=== PATIENT | male | born 1955 | race Two or more races ===

== ENCOUNTER 2018-03-22 09:48 | Inpatient (IN) | payer BC ==
[~2018-03-22] VITALS: Ht 172.7 cm; Wt 81.6 kg
[2018-03-22 12:19] LABS: BASOPHIL (%) 0.3 % (0-1); EOSINOPHIL (%) 0.3 % (0-5); HEMATOCRIT 29.5 % (38.0-50.0); IMMATURE GRANULOCYTE (%) 0.3 % (0.0-0.7); LYMPHOCYTE COUNT 0.7 K/uL (1.0-2.8); MCH 30.1 PG (29.0-34.0); MCHC 33.9 G/DL (30.0-36.0); MCV 88.9 FL (86-99); MONOCYTE (%) 5.7 % (3-12); MONOCYTE COUNT 0.7 K/uL (0-0.8); NEUTROPHIL (%) 87.4 % (45-76); NEUTROPHIL COUNT 10.7 K/uL (1.8-6.4); PLATELET COUNT 272 K/uL (156-360); RBC DIS.WIDTH-CV 13.6 % (11.8-14.6); RBC DIS.WIDTH-SD 44.8 % (39-53); RED BLOOD COUNT 3.32 M/uL (4.00-5.50); WHITE BLOOD COUNT 12.2 K/uL (4.1-10.2)
[2018-03-22 12:30] LABS: ALBUMIN 3.6 g/dL (3.2-4.8)
[2018-03-22 12:31] LABS: CHLORIDE 99 mEq/L (99-109); POTASSIUM 3.1 mEq/L (3.7-5.4); SODIUM 141 mEq/L (136-147)
[2018-03-22 12:33] LABS: GLUCOSE 109 mg/dL (70-99); TOTAL PROTEIN 7.3 g/dL (6.4-8.3)
[2018-03-22 12:35] LABS: INTER. NORMALIZED RATIO 1.5; TOTAL BILIRUBIN 0.6 mg/dL (0.0-1.0)
[2018-03-22 12:36] LABS: ALKALINE PHOSPHATASE 102 IU/L (3-129)
[2018-03-22 12:37] LABS: CREATININE 0.9 mg/dL (0.6-1.3); GFR ESTIMATE (CALCULATED) > 59 mL/min/ (58.99-99999); PTT 28.5 SEC (25-37)
[2018-03-22 12:38] LABS: AST (GOT) 19 IU/L (2-34); UREA NITROGEN (BUN) 13 mg/dL (9-23)
[2018-03-22 12:39] LABS: TROP-I INTERPRETATION NEGATIVE; TROPONIN-I < 0.01 ng/mL (0.0-0.30)
[2018-03-22 12:40] LABS: ALT (GPT) 30 IU/L (3-49)
[2018-03-22] MEDS ORDERED: PRAVASTATIN SOD80 MG PO (12:44)
[2018-03-22] MEDS ORDERED: DICYCLOMINE HCL10 MG PO (12:44)
[2018-03-22] MEDS ORDERED: BALSALAZIDE DI750 MG PO (12:44)
[2018-03-22] MEDS ORDERED: LISINOPRIL-HCT1 EACH PO (12:45)
[2018-03-22] MEDS ORDERED: OMEPRAZOLE20 M4 PO (12:45)
[2018-03-22] MEDS ORDERED: AZATHIOPRINE50 MG PO (12:45)
[2018-03-22] MEDS ORDERED: CALCITRATE + D1 EACH PO (12:46)
[2018-03-22] MEDS ORDERED: FOLIC ACID0.4 MG PO (12:46)
[2018-03-22] MEDS ORDERED: TYLENOL REGULA325 MG PO (12:47)
[2018-03-22] MEDS ORDERED: MEN'S MULTI-VI1 EACH PO (12:47)
[2018-03-22 15:00] VITALS: BP 136/80
[2018-03-22 19:13] LABS: TROP-I INTERPRETATION NEGATIVE; TROPONIN-I < 0.01 ng/mL (0.0-0.30)
[2018-03-22 19:28] VITALS: BP 125/74
[2018-03-22 23:48] VITALS: BP 126/79
[2018-03-22 23:55] VITALS: BP 105/67
[2018-03-23 01:53] LABS: TROP-I INTERPRETATION NEGATIVE; TROPONIN-I < 0.01 ng/mL (0.0-0.30)
[2018-03-23 04:11] VITALS: BP 116/73
[2018-03-23 07:59] VITALS: BP 113/74
[2018-03-23 08:25] LABS: HEMATOCRIT 27.3 % (38.0-50.0); HEMOGLOBIN 9.1 G/DL (12.5-16.6); MCH 29.4 PG (29.0-34.0); MCHC 33.3 G/DL (30.0-36.0); MCV 88.3 FL (86-99); PLATELET COUNT 276 K/uL (156-360); RBC DIS.WIDTH-CV 13.8 % (11.8-14.6); RBC DIS.WIDTH-SD 44.9 % (39-53); RED BLOOD COUNT 3.09 M/uL (4.00-5.50); WHITE BLOOD COUNT 7.8 K/uL (4.1-10.2)
[2018-03-23 08:50] LABS: CHLORIDE 98 MEQ/L (99-109); CREATININE 0.9 MG/DL (0.6-1.3); GFR ESTIMATE (CALCULATED) > 59 mL/min/ (58.99-99999); GLUCOSE 100 mg/dL (70-99); POTASSIUM 3.6 MEQ/L (3.7-5.4); SODIUM 140 MEQ/L (136-147); UREA NITROGEN (BUN) 12 mg/dL (9-23)
[2018-03-23] MEDS ORDERED: ELIQUIS5 MG PO (11:17)
[2018-03-23 15:54] VITALS: BP 102/73
== END 2018-03-23 16:23 | disposition home or self-care (01) | DRG 299 ==
LOC: EME 09:48 → RAD 09:48 → EME 09:48 → EDSTATUS 11:37 → EDOF 13:22 → 5SOUTH 14:53
PROVIDERS: Emergency Medicine; Hospitalist; Internal Medicine
DX: I82.411 Acute embolism and thrombosis of right femoral vein (principal); I26.99 Other pulmonary embolism without acute cor pulmonale; I82.431 Acute embolism and thrombosis of right popliteal vein; I82.441 Acute embolism and thrombosis of right tibial vein; K51.90 Ulcerative colitis, unspecified, without complications; D64.81 Anemia due to antineoplastic chemotherapy; T45.1X5A Adverse effect of antineoplastic and immunosuppressive drugs, initial encounter; E87.6 Hypokalemia; I10 Essential (primary) hypertension; E78.5 Hyperlipidemia, unspecified; K21.9 Gastro-esophageal reflux disease without esophagitis; M85.80 Other specified disorders of bone density and structure, unspecified site; Z87.891 Personal history of nicotine dependence; Z90.49 Acquired absence of other specified parts of digestive tract
CPT/HCPCS: 71275; 80048; 80053; 84484; 85025; 85027; 85610; 85730; 93005; 93971; 99281; 99285; J7500

== ENCOUNTER 2018-04-02 10:08 | Inpatient (IN) | payer BC ==
[~2018-04-02] VITALS: Ht 172.7 cm; Wt 86.4 kg
[~2018-04-02 10:08] MED LIST: AZATHIOPRINE50 MG PO; BALSALAZIDE DI750 MG PO; CALCIUM CITRAT1 EA14 PO; DICYCLOMINE HCL10 MG PO; ELIQUIS5 MG PO; FOLIC ACID0.4 MG PO; LISINOPRIL-HCT1 EACH PO; MEN'S MULTI-VI1 EACH PO; OMEPRAZOLE20 M4 PO; PRAVASTATIN SOD80 MG PO; TYLENOL REGULA325 MG PO
[2018-04-02 13:08] LABS: HEMATOCRIT 31.9 % (38.0-50.0); HEMOGLOBIN 10.4 G/DL (12.5-16.6); MCH 29.7 PG (29.0-34.0); MCHC 32.6 G/DL (30.0-36.0); MCV 91.1 FL (86-99); PLATELET COUNT 416 K/uL (156-360); RBC DIS.WIDTH-CV 14.9 % (11.8-14.6); RBC DIS.WIDTH-SD 49.3 % (39-53); WHITE BLOOD COUNT 8.3 K/uL (4.1-10.2)
[2018-04-02 13:10] LABS: CHLORIDE 106 mEq/L (99-109); POTASSIUM 3.6 mEq/L (3.7-5.4); SODIUM 140 mEq/L (136-147)
[2018-04-02 13:12] LABS: GLUCOSE 153 mg/dL (70-99)
[2018-04-02 13:16] LABS: CREATININE 0.8 mg/dL (0.6-1.3); GFR ESTIMATE (CALCULATED) > 59 mL/min/ (58.99-99999)
[2018-04-02 13:17] LABS: UREA NITROGEN (BUN) 10 mg/dL (9-23)
[2018-04-02] MEDS ORDERED: ELIQUIS5 MG PO (14:17)
[2018-04-02] MEDS ORDERED: POTASSIUM CHLO20 ME1 PO (14:20)
[2018-04-02] MEDS ORDERED: IMODIUM A-D2 M2 PO (14:26)
[2018-04-02] MEDS ORDERED: METAMUCIL POWD822 G1 PO (14:29)
[2018-04-02 21:30] VITALS: BP 136/95
[2018-04-02 23:12] VITALS: BP 131/89
[2018-04-03 05:34] VITALS: BP 143/93
[2018-04-03 08:45] VITALS: BP 121/85
[2018-04-03 09:28] LABS: INTER. NORMALIZED RATIO 1.3
[2018-04-03 09:31] LABS: PTT 29.9 SEC (25-37)
[2018-04-03 12:26] VITALS: BP 141/72
[2018-04-03 15:58] VITALS: BP 131/77
[2018-04-03 20:00] VITALS: BP 126/74
[2018-04-03 20:05] LABS: CHLORIDE 104 MEQ/L (99-109); CREATININE 1.1 MG/DL (0.6-1.3); GFR ESTIMATE (CALCULATED) > 59 mL/min/ (58.99-99999); GLUCOSE 181 mg/dL (70-99); POTASSIUM 3.9 MEQ/L (3.7-5.4); SODIUM 142 MEQ/L (136-147)
[2018-04-03 20:06] LABS: MAGNESIUM 0.6 mg/dl (1.3-2.7); UREA NITROGEN (BUN) 23 mg/dL (9-23)
[2018-04-03 23:29] VITALS: BP 125/85
[2018-04-04 04:19] VITALS: BP 119/78
[2018-04-04 05:33] LABS: HEMATOCRIT 31.5 % (38.0-50.0); HEMOGLOBIN 10.3 G/DL (12.5-16.6); MCH 29.3 PG (29.0-34.0); MCHC 32.7 G/DL (30.0-36.0); MCV 89.5 FL (86-99); PLATELET COUNT 376 K/uL (156-360); RBC DIS.WIDTH-CV 15.4 % (11.8-14.6); RBC DIS.WIDTH-SD 49.4 % (39-53); RED BLOOD COUNT 3.52 M/uL (4.00-5.50); WHITE BLOOD COUNT 13.1 K/uL (4.1-10.2)
[2018-04-04 05:57] LABS: CHLORIDE 104 MEQ/L (99-109); GFR ESTIMATE (CALCULATED) > 59 mL/min/ (58.99-99999); GLUCOSE 150 mg/dL (70-99); POTASSIUM 4.5 MEQ/L (3.7-5.4); SODIUM 142 MEQ/L (136-147); UREA NITROGEN (BUN) 25 mg/dL (9-23)
[2018-04-04] MEDS ORDERED: BENADRYL25 MG PO (06:14)
[2018-04-04] MEDS ORDERED: AMLODIPINE BESYL5 MG PO (06:15)
[2018-04-04] MEDS ORDERED: FAMOTIDINE20 MG PO (06:16)
[2018-04-04] MEDS ORDERED: PREDNISONE20 MG PO (06:20)
[2018-04-04 06:23] LABS: MAGNESIUM 1.7 mg/dl (1.3-2.7)
[2018-04-04 07:52] VITALS: BP 117/72
[2018-04-04 11:48] VITALS: BP 116/79
[2018-04-04 17:06] VITALS: BP 115/79
== END 2018-04-04 19:24 | disposition home or self-care (01) | DRG 916 ==
LOC: EME 10:08 → EDOF 13:04 → ENRESERV 13:05 → CANRESERV 13:18 → 4EAST 15:34 → ENRESERV 15:43 → CANRESERV 15:43 → ENRESERV 18:35 → 4EAST 21:16
PROVIDERS: Emergency Medicine; Internal Medicine
DX: T78.3XXA Angioneurotic edema, initial encounter (principal); T44.5X5A Adverse effect of predominantly beta-adrenoreceptor agonists, initial encounter; R13.10 Dysphagia, unspecified; I10 Essential (primary) hypertension; K21.9 Gastro-esophageal reflux disease without esophagitis; E78.5 Hyperlipidemia, unspecified; K51.90 Ulcerative colitis, unspecified, without complications; E87.6 Hypokalemia; E83.42 Hypomagnesemia; D64.9 Anemia, unspecified; M06.9 Rheumatoid arthritis, unspecified; Z79.01 Long term (current) use of anticoagulants; Z86.711 Personal history of pulmonary embolism; Z86.718 Personal history of other venous thrombosis and embolism; Z87.891 Personal history of nicotine dependence; Z90.49 Acquired absence of other specified parts of digestive tract; Z82.49 Family history of ischemic heart disease and other diseases of the circulatory system
CPT/HCPCS: 70360; 80048; 83735; 85027; 85610; 85730; 86850; 86900; 86901; 99281; 99285; J1200; J2930; J3475; J7500; J7512; S0028